=== PATIENT | female | born 1950 | race Caucasian/White ===

== ENCOUNTER 2016-09-30 00:40 | Inpatient (IN) | payer MEDICARE, OTHER ==
[~2016-09-30] VITALS: Ht 170.2 cm; Wt 87.5 kg
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
[2016-09-30] MEDS ORDERED: QUET200T PO (00:56)
[2016-09-30] MEDS ORDERED: BUPR-96 PO (00:56)
[2016-09-30] MEDS ORDERED: INSU100I24 SQ (00:56)
[2016-09-30] MEDS ORDERED: ESCI10TA PO (00:56)
[2016-09-30] MEDS ORDERED: OLAN5TAB3 PO (00:56)
[2016-09-30] MEDS ORDERED: PIOG30TA2 PO (00:56)
[2016-09-30] MEDS ORDERED: DIVA125C5 PO (00:56)
[2016-09-30] MEDS ORDERED: ATOR40TA PO (00:56)
[2016-09-30] MEDS ORDERED: INSU200I SQ (00:56)
[2016-09-30] MEDS ORDERED: LEVE500T20 PO (00:56)
[2016-09-30] MEDS ORDERED: BLOO-360 IN (00:56)
--- NOTE | 2016-09-30 00:56 | NUR ---
pt refused ekg
--- NOTE | 2016-09-30 01:05 | NUR ---
Call received from Diego Davidson, the DPOA for the patient, , stating that he would like to be contacted regarding the care of the patient and that she has been diagnosed with irreversible brain damage by a Neurologist. No further information at this time.
--- NOTE | 2016-09-30 01:10 | NUR ---
Pt. admitted to GPS, under care of Dr. Henry Belongs List completed
[2016-09-30] MEDS ORDERED: ACETAMINOPHEN 325 MG TABLET PO PRN (01:15)
[2016-09-30] MEDS ORDERED: MAG HYDROX/AL HYDROX/SIMETH 30 ML LIQUID UDC PO PRN (01:15)
[2016-09-30] MEDS ORDERED: MAGNESIUM HYDROXIDE 30 ML LIQUID UDC PO PRN (01:15)
[2016-09-30] MEDS: ZOLPIDEM 5 MG TABLET PO PRN (01:38)
[2016-09-30] MEDS ORDERED: LORAZEPAM 1 MG TABLET ONE (01:44)
[2016-09-30] MEDS ORDERED: ZOLPIDEM 5 MG TABLET ONE (01:45)
--- NOTE | 2016-09-30 02:00 | NUR ---
GPS: Admitted to unit earlier a 65 yr.old female from [facility] on a 72 hour hold for GD. Pt. was angry,uncooperative, attempting to leave unit earlier during admission process. Pt.came to the unit accompanied by her significant other named "Elvis". Refused body check despite explanation of importance. Refused to answer most questions during interview. Re-assured by staff. Re-directed prn. Safe environment provided. Will continue to monitor.
[2016-09-30 02:15] VITALS: BP 157/88
[2016-09-30 02:30] VITALS: BP 157/88
[2016-09-30] MEDS: NICOTINE 21 MG/24HR PATCH TD SCH (09:30)
[2016-09-30] MEDS ORDERED: DEXTROSE 50% 50 ML DISP.SYRIN IV PRN (11:00)
[2016-09-30] MEDS ORDERED: BLOOD SUGAR DIAGNOSTIC 1 EACH STRIP VI SCH (11:30)
[2016-09-30] MEDS: BLOOD SUGAR DIAGNOSTIC 1 EACH STRIP VI SCH ×3 (11:32→20:30)
[2016-09-30] MEDS: LEVETIRACETAM 500 MG TABLET PO SCH ×2 (11:34→20:16)
[2016-09-30] MEDS: DIVALPROEX SPRINKLE 125 MG CAP.SPRINK PO SCH (11:35)
[2016-09-30] MEDS: INSULIN DETEMIR 300 UNIT/3 ML CARTRIDGE SQ SCH (11:42)
[2016-09-30] MEDS: INSULIN REGULAR, HUMAN 300 UNIT/3 ML VIAL SQ PRN ×3 (11:43→20:33)
[2016-09-30] MEDS: QUETIAPINE FUMARATE 25 MG TABLET PO SCH ×2 (12:10→16:59)
[2016-09-30 15:30] VITALS: BP 127/67
[2016-09-30 20:05] VITALS: BP 125/57
[2016-09-30] MEDS: QUETIAPINE FUMARATE 100 MG TABLET PO SCH (20:16)
[2016-09-30] MEDS: ATORVASTATIN 40 MG TABLET PO SCH (20:16)
[2016-10-01] MEDS: LORAZEPAM 0.5 MG TABLET PO PRN (00:52)
--- NOTE | 2016-10-01 00:53 | NUR ---
GPS: PATIENT IS VERY AGITATED. TRYING TO GO TO NURSING STATION. STATED I WANT GO HOME I AM NOT BELONG THIS PLACE. ATIVAN 1 MG PO GIVEN FOR AGITATION.
--- NOTE | 2016-10-01 01:54 | NUR ---
GPS: PATIENT IS CALM NOW. PRN EFFECTIVE FOR AGITATION.
--- NOTE | 2016-10-01 06:35 | NUR ---
GPS: REMAIN COOPERATIVE WITH MEDS AND CARE. SLEPT 05:30 HRS THROUGH THE NIGHT. CONTINUE PLAN OF CARE.
[2016-10-01] MEDS: BLOOD SUGAR DIAGNOSTIC 1 EACH STRIP VI SCH ×4 (06:42→21:40)
[2016-10-01 07:30] VITALS: BP 102/59
[2016-10-01] MEDS: PIOGLITAZONE HCL 30 MG TABLET PO SCH (09:05)
[2016-10-01] MEDS: DIVALPROEX SPRINKLE 125 MG CAP.SPRINK PO SCH (09:06)
[2016-10-01] MEDS: LEVETIRACETAM 500 MG TABLET PO SCH ×2 (09:06→21:24)
[2016-10-01] MEDS: QUETIAPINE FUMARATE 25 MG TABLET PO SCH ×2 (09:06→16:36)
[2016-10-01] MEDS: NICOTINE 21 MG/24HR PATCH TD SCH (09:06)
[2016-10-01] MEDS: buPROPion XL 150 MG TAB.SR.24H PO SCH (09:06)
[2016-10-01] MEDS: INSULIN DETEMIR 300 UNIT/3 ML CARTRIDGE SQ SCH (09:07)
[2016-10-01] MEDS: INSULIN REGULAR, HUMAN 300 UNIT/3 ML VIAL SQ PRN ×3 (11:11→21:45)
--- NOTE | 2016-10-01 11:25 | NUR ---
GPS: Nursing Notes: Thought Disorder: Patient is awake and responding to her name, poor impulse control, internally preoccupied, clogging the toilets with trash then coming to nursing station stating "The toilet is clog...", loud and anxious affect at times, redirected, but gets easily angry and irritable, impaired judgment, laying down on the floor and not responding to questions, V/S: 159/86, 87, 99%, 18, 0/10, selectively mute, placed on the augusto chair near the nursing station to monitor her for safety, unable to formulate a viable plan for self care, labile, unpredictable behavior, continue with treatment plan.
[2016-10-01 15:04] LABS: THYROID STIMULATING HORMONE 2.485 mIU/mL (0.358-3.740)
[2016-10-01 15:51] VITALS: BP 128/62
[2016-10-01] MEDS: QUETIAPINE FUMARATE 100 MG TABLET PO SCH (21:24)
[2016-10-01] MEDS: ATORVASTATIN 40 MG TABLET PO SCH (21:24)
[2016-10-01 21:31] VITALS: BP 120/61
--- NOTE | 2016-10-01 22:00 | NUR ---
received to care, lying in bed, pleasant upon approach. isolative and non interactive, with peers. compliant with medications and staff direction. as of 2199, she appears to be asleep. no distress noted. will continue to monitor closely.
[2016-10-01] MEDS: ZOLPIDEM 5 MG TABLET PO PRN (23:29)
--- NOTE | 2016-10-01 23:29 | NUR ---
pt is now awake,and wandering the hallway, stating , "i have to make everybody breakfast" pt was redirected back to bed. reality orientation was provided, and PRN syed was given. will continue to monitor closely.
--- NOTE | 2016-10-02 00:33 | NUR ---
REMAINS AWAKE, IN BED. ASKING WHERE HER KITTEN IS. REALITY ORIENTATION PROVIDED. ENCOURAGED TO TRY TO GO TO SLEEP. WILL CONTINUE TO MONITOR CLOSELY.
[2016-10-02] MEDS: LORAZEPAM 0.5 MG TABLET PO PRN (00:57)
--- NOTE | 2016-10-02 00:57 | NUR ---
remains awake. wandering the hallway, looking for the "kitchen." PRN ativan was given, and a snack. currently in bed. will continue to monitor closely.
--- NOTE | 2016-10-02 02:00 | NUR ---
appears to be asleep.
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
--- NOTE | 2016-10-02 06:00 | NUR ---
slept 4.5 hours, total. is now sleeping intermittently in the augusto chair. no distress noted.
[2016-10-02] MEDS: BLOOD SUGAR DIAGNOSTIC 1 EACH STRIP VI SCH ×4 (06:19→20:49)
[2016-10-02 07:30] VITALS: BP 119/70
[2016-10-02] MEDS: INSULIN REGULAR, HUMAN 300 UNIT/3 ML VIAL SQ PRN ×3 (07:47→16:43)
[2016-10-02 07:58] LABS: BILIRUBIN,TOTAL 0.3 mg/dL (0.2-1.0); CREATININE 1.1 mg/dL (0.6-1.3); MAGNESIUM 1.8 mg/dL (1.8-2.4); PHOSPHOROUS 4.6 mg/dL (2.5-4.9); TOTAL PROTEIN, SERUM 6.5 g/dL (6.4-8.2)
[2016-10-02 08:16] LABS: BASOPHILS % (AUTO) 0.5 % (0.0-2.0); EOSINOPHILS # (AUTO) 0.1 K/uL (0.0-0.7); EOSINOPHILS % (AUTO) 1.4 % (0.0-7.0); HEMATOCRIT 32.8 % (37-47); HEMOGLOBIN 11.1 G/DL (12.0-16.0); LYMPHOCYTES # (AUTO) 1.4 K/UL (0.8-4.8); LYMPHOCYTES % (AUTO) 21.8 % (20.5-51.5); MEAN CORPUSCULAR HGB CONC 34 g/dL (32.0-37.0); MEAN CORPUSCULAR VOLUME 91.1 FL (81.0-99.0); MONOCYTES # (AUTO) 0.5 K/UL (0.1-1.30); MONOCYTES % (AUTO) 8.1 % (0.0-11.0); NEUTROPHILS # (AUTO) 4.4 K/UL (1.8-8.9); NEUTROPHILS % (AUTO) 68.2 % (38.5-71.5); PLATELET COUNT (AUTO) 264 K/UL (150-450); WHITE BLOOD COUNT (AUTO) 6.4 K/UL (4.0-11.2)
[2016-10-02] MEDS: PIOGLITAZONE HCL 30 MG TABLET PO SCH (08:40)
[2016-10-02] MEDS: NICOTINE 21 MG/24HR PATCH TD SCH (08:40)
[2016-10-02] MEDS: LEVETIRACETAM 500 MG TABLET PO SCH ×2 (08:40→20:41)
[2016-10-02] MEDS: DIVALPROEX SPRINKLE 125 MG CAP.SPRINK PO SCH ×2 (08:40→20:41)
[2016-10-02] MEDS: buPROPion XL 150 MG TAB.SR.24H PO SCH (08:40)
[2016-10-02] MEDS: QUETIAPINE FUMARATE 25 MG TABLET PO SCH ×2 (08:40→16:44)
[2016-10-02] MEDS: INSULIN DETEMIR 300 UNIT/3 ML CARTRIDGE SQ SCH (08:41)
[2016-10-02 15:15] VITALS: BP 122/66
[2016-10-02] MEDS ORDERED: DEXTROSE 50% 50 ML DISP.SYRIN IV PRN (18:30)
[2016-10-02 20:25] VITALS: BP 120/69
[2016-10-02 20:26] VITALS: BP 141/87
[2016-10-02] MEDS: ATORVASTATIN 40 MG TABLET PO SCH (20:42)
[2016-10-02] MEDS: QUETIAPINE FUMARATE 100 MG TABLET PO SCH (20:42)
[2016-10-02] MEDS: INSULIN REGULAR, HUMAN 300 UNITS/3 ML VIAL SQ PRN (20:54)
[2016-10-03] MEDS: BLOOD SUGAR DIAGNOSTIC 1 EACH STRIP VI SCH ×4 (06:39→21:04)
[2016-10-03] MEDS: PIOGLITAZONE HCL 30 MG TABLET PO SCH (08:41)
[2016-10-03] MEDS: NICOTINE 21 MG/24HR PATCH TD SCH (08:41)
[2016-10-03] MEDS: LEVETIRACETAM 500 MG TABLET PO SCH ×2 (08:41→21:04)
[2016-10-03] MEDS: buPROPion XL 150 MG TAB.SR.24H PO SCH (08:41)
[2016-10-03] MEDS: QUETIAPINE FUMARATE 25 MG TABLET PO SCH ×2 (08:41→16:26)
[2016-10-03] MEDS: DIVALPROEX SPRINKLE 125 MG CAP.SPRINK PO SCH ×2 (08:42→21:04)
[2016-10-03] MEDS: INSULIN DETEMIR 300 UNIT/3 ML CARTRIDGE SQ SCH (08:43)
--- NOTE | 2016-10-03 11:47 | NUR ---
Initial discharge instructions: Pt resides at home alone [[address],[address];[phone]].Pt is confused and unable to discuss discharge plans.Spoke with pt's Brother/DPKARINA-Cortez Smith [phone] who reported he would like the pt placed a SNF upon discharge.SW will speak with pt,family,and MD regarding appropriate discharge plans.SW will form a safe and proper discharge.
[2016-10-03] MEDS: INSULIN REGULAR, HUMAN 300 UNIT/3 ML VIAL SQ PRN ×2 (12:48→16:29)
[2016-10-03 16:00] VITALS: BP 104/76
[2016-10-03] MEDS: LORAZEPAM 0.5 MG TABLET PO PRN (18:29)
[2016-10-03 20:28] VITALS: BP 136/77
[2016-10-03] MEDS: QUETIAPINE FUMARATE 100 MG TABLET PO SCH (21:04)
[2016-10-03] MEDS: ATORVASTATIN 40 MG TABLET PO SCH (21:04)
[2016-10-03] MEDS: INSULIN REGULAR, HUMAN 300 UNITS/3 ML VIAL SQ PRN (21:06)
--- NOTE | 2016-10-03 21:57 | NUR ---
RESTING IN BED COMFORTABLY, PLEASANT UPON APPROACH. NO ACUTE DISTRESS NOTED. NO AGGRESSION NOTED. COMPLIANT WITH MEDICATION. BS TAKEN WITH INSULIN SLINDING SCALE ORDERED. NEEDS ATTENDED. WILL CONTINUE TO MONITOR
--- NOTE | 2016-10-04 00:20 | NUR ---
WOKE UP, CAME TO NURSES STATION STATING SHE WANTS TO CALL HER BOYFRIEND. REDIRECTED, WENT BACK TO HER ROOM
[2016-10-04] MEDS: LORAZEPAM 0.5 MG TABLET PO PRN (01:05)
--- NOTE | 2016-10-04 06:12 | NUR ---
AFTER ATIVAN GIVEN ORDERED, PATIENT WAS ABLE TO SLEEP WELL. SLEPT FOR A TOTAL OF 7.30 HOURS. ALL DUE MEDS GIVEN ORDERED. NO HALLUCINATIONS NOTED DURING THE SHIFT. NEEDS ATTENDED. SAFETY MAINTAINED
[2016-10-04] MEDS: BLOOD SUGAR DIAGNOSTIC 1 EACH STRIP VI SCH ×4 (06:41→21:06)
[2016-10-04 07:30] VITALS: BP 143/75
[2016-10-04] MEDS: LEVETIRACETAM 500 MG TABLET PO SCH ×2 (08:38→21:27)
[2016-10-04] MEDS: buPROPion XL 150 MG TAB.SR.24H PO SCH (08:38)
[2016-10-04] MEDS: QUETIAPINE FUMARATE 25 MG TABLET PO SCH ×2 (08:38→17:21)
[2016-10-04] MEDS: PIOGLITAZONE HCL 30 MG TABLET PO SCH (08:38)
[2016-10-04] MEDS: DIVALPROEX SPRINKLE 125 MG CAP.SPRINK PO SCH ×2 (08:39→21:26)
[2016-10-04] MEDS: INSULIN DETEMIR 300 UNIT/3 ML CARTRIDGE SQ SCH (08:42)
[2016-10-04] MEDS: INSULIN REGULAR, HUMAN 300 UNIT/3 ML VIAL SQ PRN ×2 (08:44→12:25)
[2016-10-04] MEDS: NICOTINE 21 MG/24HR PATCH TD SCH (08:49)
[2016-10-04 16:00] VITALS: BP 103/64
[2016-10-04 20:38] VITALS: BP 136/72
[2016-10-04] MEDS: INSULIN REGULAR, HUMAN 300 UNITS/3 ML VIAL SQ PRN (21:24)
[2016-10-04] MEDS: ATORVASTATIN 40 MG TABLET PO SCH (21:26)
[2016-10-04] MEDS: QUETIAPINE FUMARATE 100 MG TABLET PO SCH (21:26)
[2016-10-04] MEDS: ZOLPIDEM 5 MG TABLET PO PRN (23:32)
--- NOTE | 2016-10-05 00:10 | NUR ---
PT REQUESTED SLEEP AID FOR INSOMNIA. MEDICATED WITH AMBIEN PER ORDERS. AT TIME OF REASSESSMENT PT WAS SLEEPING IN NAD. CONTINUE TO MONITOR PT STATUS.
--- NOTE | 2016-10-05 02:45 | NUR ---
PT AT NURSING STATION STATING SHE WANTED TO LEAVE. PT TOLD SHE WOULD HAVE WAIT TO SEE HER DOCTOR AND BE RELEASED BY HIM AND THEN ASKED TO RETURN TO HER BED. PT BEGAN WALKING IN THE DIRECTION OF HER ROOM MAKING HER WAY TO THE EXIT DOOR ACROSS FROM SHOWERS, ATTEMPTED TO OPEN THE DOOR TRIGGERING THE ALARM. STAFF FOUND PT WALKING AWAY FROM THE DOOR AND INSTRUCTED HER TO RETURN TO HER ROOM. SECURITY NOTIFIED TO RESET DOOR ALARM.
[2016-10-05] MEDS: BLOOD SUGAR DIAGNOSTIC 1 EACH STRIP VI SCH ×4 (08:08→20:54)
[2016-10-05] MEDS: QUETIAPINE FUMARATE 25 MG TABLET PO SCH ×2 (08:29→17:08)
[2016-10-05] MEDS: buPROPion XL 150 MG TAB.SR.24H PO SCH (08:29)
[2016-10-05] MEDS: PIOGLITAZONE HCL 30 MG TABLET PO SCH (08:29)
[2016-10-05] MEDS: DIVALPROEX SPRINKLE 125 MG CAP.SPRINK PO SCH ×2 (08:29→21:02)
[2016-10-05] MEDS: NICOTINE 21 MG/24HR PATCH TD SCH (08:29)
[2016-10-05] MEDS: LEVETIRACETAM 500 MG TABLET PO SCH ×2 (08:29→21:02)
[2016-10-05] MEDS: INSULIN DETEMIR 300 UNIT/3 ML CARTRIDGE SQ SCH (08:35)
[2016-10-05] MEDS: INSULIN REGULAR, HUMAN 300 UNIT/3 ML VIAL SQ PRN ×3 (08:37→17:33)
[2016-10-05] MEDS: LORAZEPAM 0.5 MG TABLET PO PRN (10:21)
[2016-10-05 15:14] VITALS: BP 131/76
[2016-10-05] MEDS: QUETIAPINE FUMARATE 100 MG TABLET PO SCH (21:02)
[2016-10-05] MEDS: ATORVASTATIN 40 MG TABLET PO SCH (21:02)
[2016-10-05] MEDS: INSULIN REGULAR, HUMAN 300 UNITS/3 ML VIAL SQ PRN (21:03)
[2016-10-06] MEDS: BLOOD SUGAR DIAGNOSTIC 1 EACH STRIP VI SCH ×4 (06:19→21:00)
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
[2016-10-06 07:30] VITALS: BP 138/77
[2016-10-06] MEDS: INSULIN DETEMIR 300 UNIT/3 ML CARTRIDGE SQ SCH (08:07)
[2016-10-06] MEDS: PIOGLITAZONE HCL 30 MG TABLET PO SCH (08:08)
[2016-10-06] MEDS: NICOTINE 21 MG/24HR PATCH TD SCH (08:08)
[2016-10-06] MEDS: QUETIAPINE FUMARATE 25 MG TABLET PO SCH ×2 (08:09→17:24)
[2016-10-06] MEDS: LEVETIRACETAM 500 MG TABLET PO SCH ×2 (08:09→20:59)
[2016-10-06] MEDS: buPROPion XL 150 MG TAB.SR.24H PO SCH (08:09)
[2016-10-06] MEDS: LORAZEPAM 0.5 MG TABLET PO PRN (08:37)
[2016-10-06] MEDS: DIVALPROEX SPRINKLE 125 MG CAP.SPRINK PO SCH ×2 (08:37→20:59)
[2016-10-06] MEDS: INSULIN REGULAR, HUMAN 300 UNIT/3 ML VIAL SQ PRN ×2 (12:12→17:28)
[2016-10-06] MEDS: LORAZEPAM 1 MG TABLET PO PRN (15:06)
[2016-10-06 16:00] VITALS: BP 129/72
[2016-10-06] MEDS: ATORVASTATIN 40 MG TABLET PO SCH (20:59)
[2016-10-06] MEDS: QUETIAPINE FUMARATE 100 MG TABLET PO SCH (20:59)
[2016-10-07] MEDS: BLOOD SUGAR DIAGNOSTIC 1 EACH STRIP VI SCH ×5 (06:41→20:52)
[2016-10-07 07:30] VITALS: BP 101/60
[2016-10-07] MEDS: DIVALPROEX SPRINKLE 125 MG CAP.SPRINK PO SCH ×2 (08:21→20:23)
[2016-10-07] MEDS: NICOTINE 21 MG/24HR PATCH TD SCH (08:22)
[2016-10-07] MEDS: QUETIAPINE FUMARATE 25 MG TABLET PO SCH ×2 (08:22→17:20)
[2016-10-07] MEDS: buPROPion XL 150 MG TAB.SR.24H PO SCH (08:22)
[2016-10-07] MEDS: LEVETIRACETAM 500 MG TABLET PO SCH ×2 (08:22→20:23)
[2016-10-07] MEDS: PIOGLITAZONE HCL 30 MG TABLET PO SCH (08:23)
[2016-10-07] MEDS: INSULIN DETEMIR 300 UNIT/3 ML CARTRIDGE SQ SCH (08:27)
[2016-10-07] MEDS: INSULIN REGULAR, HUMAN 300 UNIT/3 ML VIAL SQ PRN (11:42)
[2016-10-07] MEDS: LORAZEPAM 1 MG TABLET PO PRN (12:32)
[2016-10-07 16:28] VITALS: BP 129/70
[2016-10-07 20:20] VITALS: BP 116/61
[2016-10-07] MEDS: ATORVASTATIN 40 MG TABLET PO SCH (20:23)
[2016-10-07] MEDS: QUETIAPINE FUMARATE 100 MG TABLET PO SCH (20:23)
[2016-10-07] MEDS: INSULIN REGULAR, HUMAN 300 UNITS/3 ML VIAL SQ PRN (20:54)
[2016-10-08] MEDS: BLOOD SUGAR DIAGNOSTIC 1 EACH STRIP VI SCH ×4 (06:42→20:10)
[2016-10-08] MEDS: LORAZEPAM 1 MG TABLET PO PRN (07:42)
[2016-10-08] MEDS: INSULIN REGULAR, HUMAN 300 UNIT/3 ML VIAL SQ PRN ×3 (07:53→16:53)
[2016-10-08 08:04] VITALS: BP 136/62
[2016-10-08] MEDS: QUETIAPINE FUMARATE 25 MG TABLET PO SCH ×2 (08:45→16:37)
[2016-10-08] MEDS: DIVALPROEX SPRINKLE 125 MG CAP.SPRINK PO SCH ×2 (08:45→16:37)
[2016-10-08] MEDS: LEVETIRACETAM 500 MG TABLET PO SCH ×2 (08:46→20:04)
[2016-10-08] MEDS: NICOTINE 21 MG/24HR PATCH TD SCH (08:46)
[2016-10-08] MEDS: buPROPion XL 150 MG TAB.SR.24H PO SCH (08:46)
[2016-10-08] MEDS: PIOGLITAZONE HCL 30 MG TABLET PO SCH (08:46)
[2016-10-08] MEDS: INSULIN DETEMIR 300 UNIT/3 ML CARTRIDGE SQ SCH (08:48)
[2016-10-08 15:08] VITALS: BP 138/74
[2016-10-08] MEDS: QUETIAPINE FUMARATE 100 MG TABLET PO SCH (20:04)
[2016-10-08] MEDS: ATORVASTATIN 40 MG TABLET PO SCH (20:04)
[2016-10-08 20:14] VITALS: BP 127/68
[2016-10-08] MEDS: INSULIN REGULAR, HUMAN 300 UNITS/3 ML VIAL SQ PRN (20:15)
[2016-10-08] MEDS ORDERED: DIVALPROEX SPRINKLE 125 MG CAP.SPRINK PO SCH (21:00)
[2016-10-09] MEDS: ZOLPIDEM 5 MG TABLET PO PRN (00:20)
[2016-10-09] MEDS: BLOOD SUGAR DIAGNOSTIC 1 EACH STRIP VI SCH (06:42)
[2016-10-09 07:30] VITALS: BP 142/81
[2016-10-09 07:44] LABS: BASOPHILS % (AUTO) 0.8 % (0.0-2.0); EOSINOPHILS # (AUTO) 0.1 K/uL (0.0-0.7); EOSINOPHILS % (AUTO) 1.8 % (0.0-7.0); HEMATOCRIT 33.5 % (37-47); HEMOGLOBIN 11.4 G/DL (12.0-16.0); LYMPHOCYTES # (AUTO) 1.6 K/UL (0.8-4.8); LYMPHOCYTES % (AUTO) 26.7 % (20.5-51.5); MEAN CORPUSCULAR HEMOGLOBIN 30.7 UUG (27.0-31.0); MEAN CORPUSCULAR HGB CONC 34 g/dL (32.0-37.0); MEAN CORPUSCULAR VOLUME 90.4 FL (81.0-99.0); MONOCYTES # (AUTO) 0.7 K/UL (0.1-1.30); MONOCYTES % (AUTO) 12.1 % (0.0-11.0); NEUTROPHILS # (AUTO) 3.5 K/UL (1.8-8.9); NEUTROPHILS % (AUTO) 58.6 % (38.5-71.5); PLATELET COUNT (AUTO) 258 K/UL (150-450); RED BLOOD CELL COUNT(AUTO) 3.71 MIL/UL (4.2-5.4); WHITE BLOOD COUNT (AUTO) 5.9 K/UL (4.0-11.2)
[2016-10-09 07:49] LABS: CREATININE 1.2 mg/dL (0.6-1.3); POTASSIUM 4.3 mmol/L (3.5-5.1)
[2016-10-09] MEDS: NICOTINE 21 MG/24HR PATCH TD SCH (08:48)
[2016-10-09] MEDS: DIVALPROEX SPRINKLE 125 MG CAP.SPRINK PO SCH (08:50)
[2016-10-09] MEDS: PIOGLITAZONE HCL 30 MG TABLET PO SCH (08:50)
[2016-10-09] MEDS: buPROPion XL 150 MG TAB.SR.24H PO SCH (08:51)
[2016-10-09] MEDS: QUETIAPINE FUMARATE 25 MG TABLET PO SCH (08:51)
[2016-10-09] MEDS: LEVETIRACETAM 500 MG TABLET PO SCH (08:51)
[2016-10-09] MEDS: INSULIN DETEMIR 300 UNIT/3 ML CARTRIDGE SQ SCH (09:42)
--- NOTE | 2016-10-09 09:52 | NUR ---
DC Note: Patient will be discharged to [facility] [[address] [facility], [place] [address]; ] via ambulance at 12:00 pm. Spoke with Ame at the facility who stated he would accept the patient today. Spoke with patient's Brother/DPOA, Diego Davidson [phone] who is aware and agreeable with discharge plans. Spoke with patient's significant other, Elvis Chatterjee [phone] who is aware and agreeable with discharge plans. Patient will follow-up with (Primary Care Provider) and (Psychiatrist) at the facility.
--- NOTE | 2016-10-09 11:15 | NUR ---
GPS: Nursing Notes: Discharges Notes: Patient is awake and responding to her name, compliant with medication and following staff directions, denies any SI/HI, denies any AH/VH, denies any pain or discomfort, denies any SOB, patient discharged ro [facility]. SNF at [address] [place]. 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 Srinivasan (Converting Operator) will continue with after care at the facility, Celine Davidson (brother/DPOA) and Elvis Chatterjee were notify by DANITZA.
[2016-10-09] MEDS ORDERED: PNEUMOCOCCAL 23-VAL P-SAC VAC 0.5 ML VIAL IM ONE (13:00)
== END 2016-10-09 11:15 | DRG 885 ==
LOC: ER 00:46 → GPS 00:50
PROVIDERS: ADMIT Psychiatry & Neurology Psychiatry; ATTEND Psychiatry & Neurology Psychiatry
DX: F31.64 Bipolar disorder, current episode mixed, severe, with psychotic features (principal); F06.8 Other specified mental disorders due to known physiological condition; N17.0 Acute kidney failure with tubular necrosis; M32.9 Systemic lupus erythematosus, unspecified; E11.65 Type 2 diabetes mellitus with hyperglycemia; G40.909 Epilepsy, unspecified, not intractable, without status epilepticus; E78.5 Hyperlipidemia, unspecified; D63.8 Anemia in other chronic diseases classified elsewhere; I10 Essential (primary) hypertension; Z91.14 Patient's other noncompliance with medication regimen; Z87.440 Personal history of urinary (tract) infections; Z90.10 Acquired absence of unspecified breast and nipple; Z85.3 Personal history of malignant neoplasm of breast; Z82.0 Family history of epilepsy and other diseases of the nervous system; Z79.899 Other long term (current) drug therapy; F41.9 Anxiety disorder, unspecified; F31.9 Bipolar disorder, unspecified; E66.9 Obesity, unspecified; G93.9 Disorder of brain, unspecified
CPT/HCPCS: 36415; 80164; 83735; 84100; 84443; 85025; 90732; 93005; A4663; J1815

== ENCOUNTER 2016-10-09 14:00 | Emergency (ER) | payer MEDICARE, OTHER ==
[~2016-10-09] VITALS: Ht 167.6 cm; Wt 90.7 kg
[~2016-10-09 14:00] MED LIST: ATOR40TA PO; BLOO-360 IN; DIVA125C5 PO; INSU100I24 SQ; INSU200I SQ; LEVE500T20 PO; PIOG30TA2 PO
--- NOTE | 2016-10-09 14:24 | NUR ---
MSE COMPLETED. [facility] CALLED FOR TRANSFER TO [facility]. PT COOPERATIVE
--- NOTE | 2016-10-09 15:12 | NUR ---
SBAR REPORT TO [facility], COPY OF ALL TESTS, AND DISCHARGE PAERS GIVEN. CALLED [facility], SPOKE TO ERICA BRADY RN AND GAVE REPORT. PT TRANSFERED VIA AMBULANCE TOOK ALL BELONGINGS. STEF THE COORDINATOR MADE AWARE OF TRANSFER.
== END 2016-10-09 15:15 | disposition short-term general hospital (02) ==
LOC: ER 14:00
DX: Z00.8 Encounter for other general examination (principal); Z88.8 Allergy status to other drugs, medicaments and biological substances
CPT/HCPCS: A4663